=== PATIENT | male | born 1980 | race Caucasian/White ===

== ENCOUNTER 2017-12-25 11:08 | Inpatient (IN) | payer OTHER ==
[~2017-12-25] VITALS: Ht 182.9 cm; Wt 81.6 kg
[~2017-12-25 11:08] MED LIST: CIPROFLOXIN HC2.5 M1 OTIC; DOXYCYCLINE 10100 MG PO; FLEXERIL PO; MEDROLDOSEPACK PO; NORCO 5-325 TA1 EACH PO
[2017-12-25 11:19] VITALS: BP 133/77
[2017-12-25 11:52] LABS: HEMATOCRIT 43.9 % (42.0-52.0); HEMOGLOBIN 14.9 gm/dL (14.0-18.0); MCH 31.1 pg (26.0-34.0); MCV 91.6 fL (80.0-100.0); MPV 7.2 fl. (7.2-11.1); NUCLEATED RBCS 0 /100WBC; PLATELET COUNT* 293 thou/uL (150-400); RDW-CV 12.8 % (10.5-14.5); WBC 13.7 thou/uL (4.0-11.0)
[2017-12-25 11:57] LABS: CALCIUM 8.9 mg/dL (8.5-10.1); POTASSIUM 4.3 mmol/L (3.5-5.1)
[2017-12-25 11:58] LABS: APTT 30.7 Seconds (25.0-31.3); PROTIME 10.7 Seconds (9.20-11.50)
[2017-12-25 12:01] LABS: ALBUMIN 3.8 g/dL (3.4-5.0); TOTAL BILIRUBIN 0.5 mg/dL (<0.1-1.0); TOTAL PROTEIN 7.6 g/dL (6.4-8.2)
[2017-12-25 12:17] LABS: ABSOLUTE MONOCYTES 0.4 thou/uL (0.0-1.2); ABSOLUTE NEUTROPHILS 12.3 thou/uL (1.6-8.1); ANISOCYTOSIS 1+; PLATELET ESTIMATE ADEQUATE; POIKILOCYTOSIS 1+
[2017-12-25 12:32] LABS: INFLUENZA A ANTIGEN None Detected (None Detect)
[2017-12-25 14:21] LABS: AMP/METHAMP POSITIVE (Negative); BARBITURATES Negative (Negative); BENZODIAZEPINES Negative (Negative); COCAINE Negative (Negative); METHADONE Negative (Negative); OPIATES Negative (Negative); PCP Negative (Negative); THC POSITIVE (Negative)
[2017-12-25 15:46] VITALS: BP 103/49
[2017-12-25 16:05] VITALS: BP 123/67
--- NOTE | 2017-12-25 18:58 | NUR ---
PT ARRIVED TO ROOM 204 AT APPROX 1600 FROM ER. PT A/O X4, STATES HE JUST FEELS "CRAPPY", TEMP WITHIN NORMAL LIMITS. VSS, SR ON THE MONITOR. PT C/O BRUNO, AND STATES HIS TOE HURTS. ASSESED RIGHT GREAT TOE FROM REPORTED DOG BITE, THERE IS AN OPEN AREA IN THE INSIDE PART, IT IS HEALING, NO DRAINAGE OR REDNESS OR SWELLING. PTS IV INFILTRATED, NEW IV STARTED TO LEFT AC. FLUIDS AND ABX ADMINISTERED PER MAY. ADMISSION HX AND ASSESMENT DONE CHARTED. PT EDUCATED PHYSICIAN/INTERNIST LIGHT, UP AD MUKUL. WILL CONTINUE TO MONITOR.
[2017-12-25 20:00] VITALS: BP 124/73
[2017-12-26] VITALS: BP 111/71; BP 135/65
--- NOTE | 2017-12-26 01:19 | NUR ---
ASSUMED PT CARE REPORT RECEIVED. AOX4 VSS, FAITGUE, MICHELLE FACE, COMPLAINT OF SORE THROAT AND PAIN IN THE RIGHT TOE. PAIN MEDS ADMINSITERED ORDERED. PT SKIN IS WARM AND TEMPT 99.7. COLD COMPRESS APPLIED ON FOREHEAD, IV FLUID INFUSING AT 150 PER HOUR. AT MIDNIGHT, PT BECAME TACHY. HR Q120S. TEMP RECHECKED AT THAT TIME 102.9 TYLENOL GIVEN ORDERED. TMEP WENT DOWN TO 100.2 COLD COMPRESS REAPPLIED, WARM COVERS PROVIDED. ROOM KEPT WARM. IV ABX ADMINISTERED ORDERED. WILL CONTINUE TO MONITOR
[2017-12-26 04:00] VITALS: BP 108/72
[2017-12-26 05:36] LABS: ABSOLUTE LYMPHOCYTES 1.1 thou/uL (0.8-5.3); ABSOLUTE MONOCYTES 0.9 thou/uL (0.0-1.2); ABSOLUTE NEUTROPHILS 10.9 thou/uL (1.6-8.1); BASOPHILS 0.2 %; HEMATOCRIT 46.1 % (42.0-52.0); HEMOGLOBIN 14.9 gm/dL (14.0-18.0); LYMPHOCYTES 8.8 %; MCH 30.7 pg (26.0-34.0); MCHC 32.2 g/dL (28.0-37.0); MCV 95.4 fL (80.0-100.0); MPV 7.2 fl. (7.2-11.1); NUCLEATED RBCS 0 /100WBC; PLATELET COUNT* 243 thou/uL (150-400); RBC 4.83 mil/uL (4.50-6.00); RDW-CV 13.3 % (10.5-14.5)
[2017-12-26 06:04] LABS: CALCIUM 8.2 mg/dL (8.5-10.1); POTASSIUM 3.6 mmol/L (3.5-5.1)
[2017-12-26 08:00] VITALS: BP 124/87
--- NOTE | 2017-12-26 11:22 | NUR ---
ASSUMED CARE OF PATIENT THIS AM AT 0730. PATIENT IS RESTING WITH CALL LIGHT IN REACH. SKIN MOIST AND COLOR IS MICHELLE. PATIENT'S TEMP IS DOWN TO 98.4 THIS AM. PATIENT C/O A SEVERE BRUNO AND SAYS THAT HIS THROAT FEELS LIKE IT IS CLOSING. THROAT EXAMINED AND DOES APPEAR SWOLLEN AND RED. DR ALMENDAREZ NOTIFIED AND IN TO SEE PATIENT. PATIENT GIVEN SOLUMEDROL IV PER ORDER. RESPIRATORY TX GIVEN PER RT. PATIENT INSTRUCTED TO GARGLE WITH WARM WATER AND SALT. TELE SHOWS ST THIS AM. THROAT CULTURES SENT X 2. MEDICATED FOR PAIN X 1. PATIENT IS RESTING AT THIS TIME. NO RESPIRATORY DISTRESS.
--- NOTE | 2017-12-26 11:25 | CON ---
[address] [address] CONSULTATION Name: ABELINO CHRISTIANSEN Room: [address] M.R.#: [id number] Admission: 12/25/17 Attend Phys: Puneet Tong MD Discharge: Date of : 76 Report #: [id number] THIS REPORT FOR: //name// CC: Puneet Tong [facility] physician/PCP DATE OF SERVICE: 12/26/2017 ATTENDING PHYSICIAN: Puneet Tong M.D. REASON FOR EVALUATION: Group A strep pharyngitis. Influenza B. HISTORY OF PRESENT ILLNESS: Chart reviewed. The patient examined. This is a 37-year-old without significant medical history who presented with a constellation of signs and symptoms including nausea, fatigue, sore throat, noted fevers as well. He was evaluated including rapid Strep which was positive, also positive influenza antigen B and mildly elevated white count as well. He was given dose of ceftriaxone, now started on Unasyn and also Tamiflu. He does complain of persistent sore throat, although he ate his complete breakfast and denies any significant dyspnea. No abdominal related complaints of generalized aches and pains. He is febrile up to 102.9 overnight. ALLERGIES: CODEINE. CURRENT MEDICATIONS: Include enoxaparin, pantoprazole, hydralazine, ondansetron, Unasyn, Tamiflu. He did give doses of methylprednisolone and epinephrine as well. PAST MEDICAL HISTORY: Bleeding ulcer. SOCIAL HISTORY: Smokes cigarettes and does use illicit drugs as well. Regular ethanol use. FAMILY HISTORY: Noncontributory. REVIEW OF SYSTEMS: As above. PHYSICAL EXAMINATION: GENERAL: He appears ill. He is not encephalopathic, reasonably well nourished, in moderate distress. VITAL SIGNS: Temperature 101.2, pulse 112, respirations 18, blood pressure 108/72. SKIN: Warm, dry, no rashes. HEENT: He has no supplemental oxygen at this point. NECK: Supple, is somewhat tender to palpation. There is no significant increased effort of breathing [place] [address] CONSULTATION Name: ABELINO CHRISTIANSEN Room: [address] [place] [facility]#: [id number] Admission: 12/25/17 Attend Phys: Puneet Tong MD Discharge: Date of : 76 Report #: [id number] HEART: Tachycardic, regular. I do not appreciate any murmur. LUNGS: Generally clear, somewhat diminished. ABDOMEN: Soft, nontender, mildly distended. There are no peritoneal signs. GENITOURINARY: Deferred. RECTAL: Deferred. LABORATORY DATA: PT of 10.7, INR 1.0. Electrolytes: Sodium 132, potassium 4.3, chloride 99, bicarbonate 27, anion gap of 6, BUN and creatinine 9 and 1.0, glucose of 104. LFTs normal. Albumin of 3, total protein 7.6. Estimated GFR 83. Noted above, rapid Strep A was positive. Lactic acid 1.6. CBC: White count of 13.7, H and H 14.9 and 43.9, platelets 293, evidence of some neutrophilia. Influenza antigen was positive for B. Chest x-ray, no acute process. ASSESSMENT: Group A strep pharyngitis, also influenza B. He is on combination therapy. I think this is a good coverage. At this point, he is ill, although he is not hemodynamically unstable, and I do not think any evidence of respiratory collapse. We will monitor expectantly. Supportive therapy as required. <ELECTRONICALLY SIGNED> By: Evert Domínguez MD 12/26/17 1125 [id number] Domínguez MD /nt
[2017-12-26 12:00] VITALS: BP 127/77
--- NOTE | 2017-12-26 12:33 | NUR ---
Nutrition: RD flagged for pressure ulcer. Pt has laceration, not a pressure ulcer, per [employer]. Albumin 3.8, WBC 13. Admitted with influenza/strep. Eating well on regular diet. Sore throat. Wt: 178#. Low nutrition risk at this time.
--- NOTE | 2017-12-26 14:33 | NUR ---
Pt is A&O. Resides at home with his and kids. 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 No DME. No hx of HH or SNF. Goal is home at wa. No needs anticipated.
[2017-12-26 16:00] VITALS: BP 122/83
[2017-12-26 20:00] VITALS: BP 109/63
[2017-12-27] VITALS: BP 101/55
[2017-12-27 04:00] VITALS: BP 123/77
--- NOTE | 2017-12-27 04:41 | NUR ---
ASSUMED PT CARE REPORT RECEIVED FROM NURSE. PT IS ALERT AWAKE, ORIENTED X4. SINUS RYTHM ON THE INSTRUMENTATION TECHNOLOGIST. NO COMPLAINT OF PAIN. IV FLUID UNFUSING IN LEFT AC LINE.VSS. NO FEVER. UP AD MUKUL TO THE BATHROOM. MEDS GIVEN.
[2017-12-27 07:33] VITALS: BP 113/76
--- NOTE | 2017-12-27 10:24 | NUR ---
Per [employer], Pt is not eligible for [place] [facility]
[2017-12-27 11:29] LABS: ABSOLUTE BASOPHILS 0.1 thou/uL (0.0-0.2); ABSOLUTE EOSINOPHILS 0.1 thou/uL (0.0-0.7); ABSOLUTE MONOCYTES 1.1 thou/uL (0.0-1.2); ABSOLUTE NEUTROPHILS 13.5 thou/uL (1.6-8.1); BASOPHILS 0.8 %; EOSINOPHILS 0.5 %; HEMATOCRIT 39.5 % (42.0-52.0); LYMPHOCYTES 12.1 %; MCH 30.4 pg (26.0-34.0); MCHC 32.9 g/dL (28.0-37.0); MCV 92.2 fL (80.0-100.0); MONOCYTES 6.7 %; MPV 7.3 fl. (7.2-11.1); NUCLEATED RBCS 0 /100WBC; PLATELET COUNT* 268 thou/uL (150-400); POLYS 79.9 %; RBC 4.28 mil/uL (4.50-6.00); WBC 16.9 thou/uL (4.0-11.0)
[2017-12-27 12:07] LABS: ALBUMIN 2.6 g/dL (3.4-5.0); CALCIUM 8.4 mg/dL (8.5-10.1); CREATININE 0.9 mg/dL (0.6-1.3); POTASSIUM 3.5 mmol/L (3.5-5.1); TOTAL BILIRUBIN 0.1 mg/dL (<0.1-1.0); TOTAL PROTEIN 6.2 g/dL (6.4-8.2)
[2017-12-27 15:14] VITALS: BP 120/74
--- NOTE | 2017-12-27 19:02 | NUR ---
VSS, ASSUMED CARE IN THE AM, ASSESSMENT PERFORMED AND CHARTED, FALL PRECAUTIONS IN PLACE AND CALL LIGHT IN REACH, PT IS A&O4 AND UP AD MUKUL PT IS MED-SURG AND IS ON RA, DENIES ANY PAIN AND HIS GOAL IS TO REMAIN IN ISO FOR FLU. HOURLY ROUNDS COMPLETED AND NO CHANGES AT THIS TIME.
[2017-12-27 20:00] VITALS: BP 111/71
[2017-12-28] VITALS: BP 112/70
--- NOTE | 2017-12-28 03:40 | NUR ---
ASSUMED PT CARE AT 1930. NURSING ASSESSMENT COMPLETED AT START OF SHIFT. PT VOICED NO CONCERNS. FAMILY AT BEDSIDE. HOURLY ROUNDING COMLETED. CALL LIGHT WITHIN REACH.
[2017-12-28 08:15] VITALS: BP 127/71
[2017-12-28] MEDS ORDERED: TAMIFLU75 MG PO (11:45)
[2017-12-28 11:46] VITALS: BP 127/71
--- NOTE | 2017-12-28 12:09 | NUR ---
PT CARE ASSUMED AT 0730. ALERT AND ORIENTED X4. SAT MAINTAINED IN RA. CALL LIGHT WITHIN REACH AND FALL PRECAUTIONS MAINTAINED. PT INFORMED ABOUT THE PLAN OF CARE, STATES UNDERSTANDING. DROPLET PREACUTIONS MAINTAINED. UP ADLIB. DENIES ANY PAIN AND SOB AT THE MOMENT. WILL CONTINUE TO MONITOR.
[2017-12-28] MEDS ORDERED: AUGMENTIN 875-1 EACH PO (12:52)
--- NOTE | 2017-12-28 13:44 | NUR ---
PT ALERT AND ORIENTED X4. SAT MAINTAINED IN RA. DISCHARGE ORDER RECIEVED FROM EDUCATION GIVEN ON FOLLOW UP AND MEDICATIONS. IV OUT. RN MDS COORDINATOR RETURNED TO TELE UNIT. WOUND PICTURE TAKEN PER PROTOCOL, DOG BITE WOUND AND DOCUMENTED. PT WALKED DOWN WITH EXPERIMENTAL WORKER FROM THE UNIT.
== END 2017-12-28 13:35 | disposition home or self-care (01) | DRG 872 ==
LOC: M.ERS 11:08 → M.2W 12:48 → M.TBA-ER 12:48 → M.2W 15:54
PROVIDERS: Nurse Practitioner Family; ADMIT Internal Medicine
DX: A41.9 Sepsis, unspecified organism (principal); E87.1 Hypo-osmolality and hyponatremia; J11.89 Influenza due to unidentified influenza virus with other manifestations; J02.0 Streptococcal pharyngitis; F17.210 Nicotine dependence, cigarettes, uncomplicated; T14.8XXA Other injury of unspecified body region, initial encounter; F19.90 Other psychoactive substance use, unspecified, uncomplicated; Z23 Encounter for immunization; Z88.6 Allergy status to analgesic agent; Z79.899 Other long term (current) drug therapy

== ENCOUNTER 2020-11-11 21:45 | Emergency (ER) | payer OTHER ==
[~2020-11-11] VITALS: Ht 185.4 cm; Wt 87.1 kg
[~2020-11-11 21:45] MED LIST changes: +AUGMENTIN 875-1 EACH PO; +TAMIFLU75 MG PO
[2020-11-11 22:28] LABS: INFLUENZA A ANTIGEN Negative (Negative); INFLUENZA B ANTIGEN Negative (Negative)
[2020-11-11] MEDS ORDERED: HYDROCODONE-ACE15 ML PO (22:32)
[2020-11-11 22:46] VITALS: BP 130/88
== END 2020-11-11 22:46 | disposition home or self-care (01) ==
LOC: M.ERS 21:45
PROVIDERS: Emergency Medicine
DX: J02.0 Streptococcal pharyngitis (principal); Z20.822 Contact with and (suspected) exposure to COVID-19; Z88.5 Allergy status to narcotic agent

== ENCOUNTER 2021-02-04 15:15 | Emergency (ER) | payer OTHER ==
[~2021-02-04] VITALS: Ht 182.9 cm; Wt 87.1 kg
[~2021-02-04 15:15] MED LIST changes: +HYDROCODONE-ACE15 ML PO
[2021-02-04 16:41] LABS: ABSOLUTE NEUTROPHILS 4.1 thou/uL (1.6-8.1); HEMOGLOBIN 15.3 gm/dL (14.0-18.0); MPV 6.8 fl. (7.2-11.1); NUCLEATED RBCS 0 /100WBC
[2021-02-04 16:43] LABS: ABSOLUTE EOSINOPHILS 0.3 thou/uL (0.0-0.7); ABSOLUTE LYMPHOCYTES 1.9 thou/uL (0.8-5.3); ABSOLUTE MONOCYTES 0.8 thou/uL (0.0-1.2); BASOPHILS 0.7 %; EOSINOPHILS 3.9 %; HEMATOCRIT 44.7 % (42.0-52.0); LYMPHOCYTES 26.7 %; MCH 31.9 pg (26.0-34.0); MCHC 34.3 g/dL (28.0-37.0); MCV 93.1 fL (80.0-100.0); MONOCYTES 11.4 %; PLATELET COUNT* 311 thou/uL (150-400); POLYS 57.3 %; RDW-CV 13.1 % (10.5-14.5); WBC 7.1 thou/uL (4.0-11.0)
[2021-02-04 16:49] LABS: CALCIUM 8.6 mg/dL (8.5-10.1); CREATININE 1.1 mg/dL (0.6-1.3); POTASSIUM 3.6 mmol/L (3.5-5.1)
[2021-02-04] MEDS ORDERED: LEVOFLOXACIN500 MG PO ×2 (17:50→18:04)
[2021-02-04] MEDS ORDERED: NORCO5 PO (18:04)
[2021-02-04 18:06] VITALS: BP 124/70
[2021-02-04] MEDS ORDERED: CEPHALEXIN500 MG PO ×2 (18:37→18:38)
[2021-02-04] MEDS ORDERED: CIPRO500 M1 PO ×2 (18:37→18:38)
== END 2021-02-04 18:07 | disposition home or self-care (01) ==
LOC: M.ERS 15:15
PROVIDERS: Physician Assistant
DX: S61.231A Puncture wound without foreign body of left index finger without damage to nail, initial encounter (principal); Z88.6 Allergy status to analgesic agent; X58.XXXA Exposure to other specified factors, initial encounter; Y93.89 Activity, other specified; Y92.89 Other specified places as the place of occurrence of the external cause; Y99.8 Other external cause status